=== PATIENT | female | born 1960 | race Two or more races ===

== ENCOUNTER 2018-10-24 10:19 | Outpatient (CLI) | payer OTHER | END 2018-10-24 10:41 | disposition home or self-care (01) | LOC: SONOGRAMA 10:19 | DX: E04.8 Other specified nontoxic goiter (principal); E04.1 Nontoxic single thyroid nodule; E03.0 Congenital hypothyroidism with diffuse goiter ==

== ENCOUNTER 2020-02-07 07:48 | Outpatient (CLI) | payer OTHER | END 2020-02-07 07:50 | disposition home or self-care (01) | LOC: SONOGRAMA 07:48 | PROVIDERS: ATTEND Internal Medicine Sports Medicine | DX: E04.2 Nontoxic multinodular goiter (principal) ==

== ENCOUNTER 2021-12-08 05:59 | Day surgery (SDC) | payer OTHER ==
[~2021-12-08 05:59] MED LIST: CLONAZEPAM1 MG PO; FLECAINIDE ACE150 MG PO; LEVOTHYROXINE25 MCG PO; LIPITOR40 MG PO; TOPROL XL25 M1 PO; XARELTO20 MG PO
== END 2021-12-08 16:00 | disposition home or self-care (01) ==
LOC: CIR.AMB 05:59
PROVIDERS: ATTEND Obstetrics & Gynecology
DX: N80.0 Endometriosis of uterus (principal); N84.0 Polyp of corpus uteri; Z20.822 Contact with and (suspected) exposure to COVID-19; Z91.013 Allergy to seafood; E03.9 Hypothyroidism, unspecified; M19.90 Unspecified osteoarthritis, unspecified site; M79.7 Fibromyalgia; D69.6 Thrombocytopenia, unspecified; Z79.01 Long term (current) use of anticoagulants

== ENCOUNTER 2022-02-26 09:45 | Outpatient (CLI) | payer OTHER | END 2022-02-26 10:14 | disposition home or self-care (01) | LOC: SONOGRAMA 09:45 | PROVIDERS: ATTEND Internal Medicine Sports Medicine | DX: E04.1 Nontoxic single thyroid nodule (principal) ==

== ENCOUNTER 2023-08-29 16:52 | Emergency (ER) | payer OTHER ==
[~2023-08-29] VITALS: Ht 162.6 cm; Wt 77.1 kg
[2023-08-29 18:29] LABS: HEMATOCRIT 38.2 % (36.0-45.00); HEMOGLOBIN 12.9 g/dL (12.0-15.00); MEAN CELL VOLUME 100.2 fL (80.00-100.00); MEAN CORPUSCULAR HEMOGLOBIN 33.9 pg (27.00-32.0); MEAN CORPUSCULAR HGB CONC 33.8 g/dl (32.0-36.0); RED BLOOD COUNT 3.81 M/uL (4.00-6.00); RED CELL DISTRIBUTION WIDTH 13.4 % (11.5-14.5)
[2023-08-29 18:30] LABS: PLATELET COUNT 123 K/uL (150-450)
[2023-08-29 18:50] LABS: CALCIUM 9.3 mg/dL (8.5-10.1); CREATININE SERUM 1.2 mg/dL (0.55-1.02); GFR 45.52; POTASSIUM 4.51 mEq/L (3.5-5.1)
[2023-08-29 19:16] LABS: PH,URINE 7.5 (5.0-8.0); URINE APPEARANCE Cloudy; URINE BILIRRUBIN Negative (NEGATIVE); URINE BLOOD Large; URINE COLOR Red; URINE GLUCOSE Negative (NEGATIVE); URINE LEUKOCYTE Small; URINE NITRATE Negative; URINE PROTEIN 30 (NEGATIVE)
[2023-08-29 19:17] LABS: URINE BACTERIA 88.1 uL (0.0-1933); URINE EPITHELIAL CELLS 4.1 uL (0.0-38.8); URINE WBC 10.3 uL (0.0-23.2)
[2023-08-29 19:22] LABS: URINE RBC > 10558.9 uL (0.0-20.8)
== END 2023-08-29 21:37 | disposition home or self-care (01) ==
LOC: ER 16:52
PROVIDERS: Emergency Medicine
DX: R31.9 Hematuria, unspecified (principal); N93.8 Other specified abnormal uterine and vaginal bleeding; I10 Essential (primary) hypertension; E03.8 Other specified hypothyroidism; Z91.013 Allergy to seafood
CPT/HCPCS: 36415; 74176; 96365; 99284; J7030

== ENCOUNTER 2023-09-15 11:26 | Inpatient (IN) | payer OTHER ==
[~2023-09-15] VITALS: Ht 160 cm; Wt 74.8 kg
[2023-09-15 12:37] LABS: HEMATOCRIT 38.3 % (36.0-45.00); HEMOGLOBIN 12.8 g/dL (12.0-15.00); MEAN CELL VOLUME 100.5 fL (80.00-100.00); MEAN CORPUSCULAR HEMOGLOBIN 33.5 pg (27.00-32.0); MEAN CORPUSCULAR HGB CONC 33.3 g/dl (32.0-36.0); PLATELET COUNT 141 K/uL (150-450); RED BLOOD COUNT 3.81 M/uL (4.00-6.00); RED CELL DISTRIBUTION WIDTH 13.1 % (11.5-14.5)
[2023-09-15 12:48] LABS: PH,URINE 5.5 (5.0-8.0); URINE APPEARANCE Clear; URINE BILIRRUBIN Negative (NEGATIVE); URINE BLOOD Large; URINE COLOR Yellow; URINE GLUCOSE Negative (NEGATIVE); URINE LEUKOCYTE Negative; URINE NITRATE Negative; URINE PROTEIN Negative (NEGATIVE)
[2023-09-15 12:51] LABS: URINE BACTERIA 74.3 uL (0.0-1933); URINE RBC 73.2 uL (0.0-20.8); URINE WBC 3.8 uL (0.0-23.2)
[2023-09-15 13:09] LABS: ALBUMIN 3.7 gm/dL (3.4-5.0); BILIRUBIN TOTAL 0.76 mg/dL (0.3-1.2); CALCIUM 9.4 mg/dL (8.5-10.1); CREATININE SERUM 0.67 mg/dL (0.55-1.02); GFR 89.18; GLOBULINA 3.8 G/DL (2.4-3.5); POTASSIUM 4.12 mEq/L (3.5-5.1); TOTAL PROTEIN 7.5 gm/dL (6.4-8.2)
[2023-09-15 13:11] LABS: INR 1.03; PARTIAL THROMBOPLASTIN TIME 27.4 SECONDS (22.0-34.0); PROTHROMBIN TIME 10.8 SECONDS (9.0-11.5)
[2023-09-20] MEDS ORDERED: TAMSULOSIN HCL0.4 MG (07:50)
[2023-09-20] MEDS ORDERED: ROSUVASTATIN CA20 MG (07:50)
[2023-09-20] MEDS ORDERED: FLECAINIDE ACET50 MG (07:50)
[2023-09-20] MEDS ORDERED: OMEPRAZOLE40 MG (07:50)
[2023-09-20] MEDS ORDERED: GABAPENTIN100 M2 (07:50)
[2023-09-20 16:14] LABS: HEMATOCRIT 36.3 % (36.0-45.00); HEMOGLOBIN 12.1 g/dL (12.0-15.00); MEAN CELL VOLUME 99.5 fL (80.00-100.00); MEAN CORPUSCULAR HEMOGLOBIN 33.1 pg (27.00-32.0); MEAN CORPUSCULAR HGB CONC 33.3 g/dl (32.0-36.0); RED BLOOD COUNT 3.65 M/uL (4.00-6.00)
[2023-09-20 16:27] LABS: PLATELET COUNT 105 K/uL (150-450)
[2023-09-22] MEDS ORDERED: GABAPENTIN300 MG PO (06:30)
[2023-09-22] MEDS ORDERED: SIMETHICONE125 M1 PO (06:30)
[2023-09-22] MEDS ORDERED: IBUPROFEN800 MG PO (06:30)
[2023-09-22] MEDS ORDERED: POLY119PG PO (06:30)
== END 2023-09-22 08:36 | disposition home or self-care (01) | DRG 743 ==
LOC: O/R 09-20 05:21 → OB/GYN 09-20 09:30
PROVIDERS: ADMIT Obstetrics & Gynecology; ATTEND Obstetrics & Gynecology
PROC: 0UT70ZZ Resection of Bilateral Fallopian Tubes, Open Approach (ICD-10-PCS; 2023-09-20)
PROC: 0UT20ZZ Resection of Bilateral Ovaries, Open Approach (ICD-10-PCS; 2023-09-20)
PROC: 0UN20ZZ Release Bilateral Ovaries, Open Approach (ICD-10-PCS; 2023-09-20)
PROC: 0UN90ZZ Release Uterus, Open Approach (ICD-10-PCS; 2023-09-20)
PROC: 0UT90ZZ Resection of Uterus, Open Approach (ICD-10-PCS; principal; 2023-09-20 09:30)
DX: D25.1 Intramural leiomyoma of uterus (principal); N84.0 Polyp of corpus uteri; N72 Inflammatory disease of cervix uteri; Z20.822 Contact with and (suspected) exposure to COVID-19

== ENCOUNTER 2024-03-07 13:55 | Outpatient (CLI) | payer OTHER ==
[~2024-03-07 13:55] MED LIST changes: +FLECAINIDE ACET50 MG; +GABAPENTIN100 M2; +GABAPENTIN300 MG PO; +IBUPROFEN800 MG PO; +OMEPRAZOLE40 MG; +POLY119PG PO; +ROSUVASTATIN CA20 MG; +SIMETHICONE125 M1 PO; +TAMSULOSIN HCL0.4 MG
== END 2024-03-07 14:06 | disposition home or self-care (01) ==
LOC: SONOGRAMA 13:55
PROVIDERS: ATTEND Internal Medicine Sports Medicine
DX: E04.1 Nontoxic single thyroid nodule (principal); E04.9 Nontoxic goiter, unspecified

== ENCOUNTER 2024-09-18 09:47 | Outpatient (CLI) | payer OTHER | END 2024-09-18 09:49 | disposition home or self-care (01) | LOC: NUCLEAR 09:47 | PROVIDERS: ATTEND Internal Medicine Sports Medicine | DX: M81.0 Age-related osteoporosis without current pathological fracture (principal) ==